=== PATIENT | male | born 1955 | race Caucasian/White ===

== ENCOUNTER → 2017-10-06 | Day surgery (SDC) | payer BC ==
[~2017-10-06] MED LIST: ALLOPURINOL300 MG PO; CRESTOR10 MG PO; FENTANYL CITRATE/PF 100MCG/2 ML INJ ONE; FISH OIL 1,2001 EACH PO; FISH OIL PO; LIDOCAINE HCL 2% LOCAL INJ 5 ML SDV VIAL INJ ONE; LISINOPRIL10 MG PO; METOPROLOL TART50 MG PO; MIDAZOLAM HCL 2 MG/2 ML VIAL ONE; OMEPRAZOLE40 MG PO; PANTOPRAZOLE SO40 MG PO; PROPOFOL IV EMULSION 10 MG/ML 50 ML VIAL ONE
--- NOTE | 2017-10-06 09:08 | Operative Report ---
DATE OF PROCEDURE: October 06, 2017 REFERRING PHYSICIAN: Dr. Edwin Santiago PROCEDURE PERFORMED: Esophagogastroduodenoscopy with biopsies and esophageal dilatation. INDICATIONS FOR EGD: Dysphagia. MEDICATION: Patient was done under MAC. Please see anesthesiologist's note. PROCEDURE: With the patient in the left lateral decubitus position, the flexible fiberoptic Olympus gastroscope was introduced into the esophagus under direct visualization without any difficulty. There was some patchy erythema noted in the distal esophagus. There was a mild stricture noted at the GE junction that was dilated to size 52-Kosovan Spears. The scope was then advanced with ease into the stomach. Mucosa overlying the antrum and the body revealed some patchy erythema and mild to moderate edema, and biopsies were obtained and sent to stain for H. pylori. Hyperplastic appearing polyps were noted in the body of the stomach and some were partially excised with the cold biopsy forceps. A minute peripyloric ulcer was noted that was not bleeding, and there was no stigmata of recent hemorrhage. Pylorus appeared to be of normal contour and shape. It was intubated with ease. The scope was advanced all the way to the 2nd portion of the duodenum. The scope was then withdrawn slowly. Mucosa overlying the proximal 2nd portion appeared to be within normal limits. An approximately 1 cm sessile lesion was noted at the junction of the bulb and 2nd portion, and that was biopsied. The scope was then withdrawn back into the stomach and retroflexed. The mucosa overlying the fundus and the cardia appeared to be within normal limits. The scope was then straightened out. It was subsequently withdrawn. Patient tolerated the procedure well. IMPRESSION 1. Distal esophagitis, mild. 2. Esophageal stricture at the gastroesophageal junction dilated to a size 52-Kosovan Spears. 3. Gastritis, biopsied. Biopsy sent to stain for Helicobacter pylori. 4. Gastric polyps, body of stomach, some partially excised with the cold biopsy forceps. 5. Peripyloric channel ulcer, minute without active bleeding or stigmata of recent hemorrhage. 6. An approximately 1 cm sessile lesion at junction of bulb and 2nd portion, biopsied. PLAN: Follow up histology. Increase Protonix to 40 mg 1 p.o. a.c. b.i.d. Job#: [id number] RI cc:EDWIN SANTIAGO MD
== END | disposition home or self-care (01) ==
LOC: OR 06:12
PROVIDERS: ATTEND Internal Medicine Gastroenterology
DX: K22.2 Esophageal obstruction (principal); K31.7 Polyp of stomach and duodenum; K31.9 Disease of stomach and duodenum, unspecified; K29.70 Gastritis, unspecified, without bleeding; K25.9 Gastric ulcer, unspecified as acute or chronic, without hemorrhage or perforation; K20.9 Esophagitis, unspecified; I10 Essential (primary) hypertension; G47.33 Obstructive sleep apnea (adult) (pediatric); E78.00 Pure hypercholesterolemia, unspecified; M10.9 Gout, unspecified; Z01.810 Encounter for preprocedural cardiovascular examination; Z79.84 Long term (current) use of oral hypoglycemic drugs
CPT/HCPCS: 43239; 43450; 93005; J2001; J2250

== ENCOUNTER → 2021-11-19 | Day surgery (SDC) | payer BC ==
[2021-11-15 11:49] LABS: BASOPHILS % 0.4 % (0.0-1.0); EOSINOPHILS # (AUTO) 0.2 (0.0-0.4); EOSINOPHILS % 2.4 % (0.0-6.0); HEMATOCRIT 40.5 % (38.2-49.6); HEMOGLOBIN 13.1 g/dL (14.0-18.0); LYMPHOCYTES # (AUTO) 2.5 (1.0-3.2); LYMPHOCYTES % 32.7 % (18.0-39.1); MEAN CORPUSCULAR HEMOGLOBIN 32.1 pg (28-32); MEAN CORPUSCULAR HGB CONC 32.3 g/dL (31-35); MEAN CORPUSCULAR VOLUME 99.3 fL (81-99); MONOCYTES # (AUTO) 0.6 (0.2-0.8); MONOCYTES % 8.4 % (4.4-11.3); NEUTROPHILS # (AUTO) 4.3 (2.1-6.9); NEUTROPHILS % 55.6 % (38.7-80.0); PLATELET COUNT 196 x10e3/uL (140-360); RED BLOOD COUNT 4.08 x10e6/uL (4.3-5.7); RED CELL DISTRIBUTION WIDTH 14.1 % (11.7-14.4)
[~2021-11-19] MED LIST changes: +ASPIRIN81 MG PO; +GLUCAGON FOR INJ 1 MG VIAL ONE; +HYOSCYAMINE SULFATE 0.5 MG/ML INJ ONE; -MIDAZOLAM HCL 2 MG/2 ML VIAL ONE; +PLAVIX75 MG PO; +PROPOFOL IV EMULSION 10 MG/ML 20 ML VIAL ONE; -PROPOFOL IV EMULSION 10 MG/ML 50 ML VIAL ONE; +VITAMIN B-121000 MCG PO; +VITAMIN C1000 MG PO; +VITAMIN D3 COM1 EACH PO
[2021-11-19 15:15] VITALS: BP 127/84
== END | disposition home or self-care (01) ==
LOC: OR 10:09
PROVIDERS: ATTEND Internal Medicine Gastroenterology
DX: Z09 Encounter for follow-up examination after completed treatment for conditions other than malignant neoplasm (principal); Z86.010 Personal history of colon polyps; K57.30 Diverticulosis of large intestine without perforation or abscess without bleeding; K64.8 Other hemorrhoids; I25.10 Atherosclerotic heart disease of native coronary artery without angina pectoris; I10 Essential (primary) hypertension; E78.5 Hyperlipidemia, unspecified; M10.9 Gout, unspecified; M06.9 Rheumatoid arthritis, unspecified; M19.90 Unspecified osteoarthritis, unspecified site; Z01.810 Encounter for preprocedural cardiovascular examination; Z01.812 Encounter for preprocedural laboratory examination; Z20.822 Contact with and (suspected) exposure to COVID-19; Z98.61 Coronary angioplasty status; Z79.02 Long term (current) use of antithrombotics/antiplatelets; Z79.82 Long term (current) use of aspirin; Z79.899 Other long term (current) drug therapy
CPT/HCPCS: 0223U; 36415; 45378; 85025; 93005; J1610; J1980; J2001; J2704; J3010

== ENCOUNTER 2024-12-25 05:49 | Observation (INO) | payer MEDICARE, OTHER ==
[2024-12-23 10:11] LABS: BASOPHILS % 0.6 % (0.0-1.0); EOSINOPHILS % 4.7 % (0.0-6.0); LYMPHOCYTES % 27.2 % (18.0-39.1); MONOCYTES % 8.2 % (4.4-11.3); NEUTROPHILS % 58.5 % (38.7-80.0); RED CELL DISTRIBUTION WIDTH 13.2 % (11.7-14.4)
[2024-12-23 10:28] LABS: INR 0.88
[2024-12-23 10:30] LABS: EST GLOMERULAR FILTRATION RATE 96.0 ML/MIN (>=60)
[~2024-12-25] VITALS: Ht 180.3 cm; Wt 84.8 kg
[~2024-12-25 05:49] MED LIST changes: -FENTANYL CITRATE/PF 100MCG/2 ML INJ ONE; +GABAPENTIN ER600 MG PO; -GLUCAGON FOR INJ 1 MG VIAL ONE; -HYOSCYAMINE SULFATE 0.5 MG/ML INJ ONE; -LIDOCAINE HCL 2% LOCAL INJ 5 ML SDV VIAL INJ ONE; +PRAVASTATIN SOD10 MG PO; -PROPOFOL IV EMULSION 10 MG/ML 20 ML VIAL ONE; +VITAMIN D31250 MCG PO; +ZINC50 M2 PO
[2024-12-25] MEDS: LACTATED RINGER'S 1,000 ML ONE (07:25)
[2024-12-25] MEDS: CEFAZOLIN SODIUM 2 GM ONE (07:25)
[2024-12-25] MEDS ORDERED: FENTANYL CITRATE/PF 100MCG/2 ML INJ ONE (07:27)
[2024-12-25] MEDS ORDERED: SEVOFLURANE INHAL SOLN 250 ML PEN BTL ONE (07:27)
[2024-12-25] MEDS ORDERED: LIDOCAINE HCL 2% LOCAL INJ 5 ML SDV VIAL INJ ONE (07:27)
[2024-12-25] MEDS ORDERED: ROCURONIUM BROMIDE 1 ML IV ONE (07:27)
[2024-12-25] MEDS ORDERED: PROPOFOL IV EMULSION 10 MG/ML 20 ML VIAL ONE (07:27)
[2024-12-25] MEDS ORDERED: ACETAMINOPHEN 1000 MG/100 ML 100 ML IV ONE (07:27)
[2024-12-25] MEDS ORDERED: DEXAMETHASONE SOD PHOS INJ 4 MG/ML SDV ONE (08:28)
[2024-12-25] MEDS ORDERED: ONDANSETRON HCL INJ 2MG/ML 2ML 2 MG/ML VIAL ONE (08:28)
[2024-12-25] MEDS ORDERED: SUGAMMADEX SODIUM 200 MG/2 ML VIAL IV ONE (09:24)
[2024-12-25] MEDS ORDERED: HYDROCODON-ACE1 EA12 PO (09:59)
[2024-12-25] MEDS ORDERED: HYDROMORPHONE 2MG/ML IV PRN (10:00)
[2024-12-25] MEDS ORDERED: MAGNESIUM/ALUMINUM/SIMETHICONE 30 ML UDC PO PRN (10:00)
[2024-12-25] MEDS ORDERED: ONDANSETRON HCL INJ 2MG/ML 2ML 2 MG/ML VIAL IV PRN (10:00)
[2024-12-25] MEDS: LACTATED RINGER'S 1,000 ML IV SCH (10:00)
[2024-12-25] MEDS ORDERED: ACETAMINOPHEN 325 MG TAB PO PRN (10:00)
[2024-12-25] MEDS ORDERED: PROMETHAZINE HCL (IM) 25 MG/ML VIAL IM PRN (10:00)
[2024-12-25] MEDS: FENTANYL CITRATE/PF 100MCG/2 ML INJ ONE (10:12)
[2024-12-25] MEDS: CARISOPRODOL 350 MG TAB PO PRN (10:36)
[2024-12-25 12:37] VITALS: BP 123/78; PULSE 85; RESP 19; TEMP 97.7; O2SAT 95
[2024-12-25 13:26] VITALS: BP 123/78; PULSE 85; RESP 19; TEMP 97.7; O2SAT 95
[2024-12-25] MEDS: OXYCODONE/ACETAMINOPHEN 5-325 1 EACH TABLET PO PRN (15:07)
[2024-12-25] MEDS: GABAPENTIN 300 MG CAP PO SCH (15:08)
[2024-12-25] MEDS: CEPACOL SORE THROAT LOZENGES PO PRN (15:08)
[2024-12-25] MEDS ORDERED: OXYCODONE/ACETAMINOPHEN 5-325 1 EACH TABLET PO PRN (15:15)
[2024-12-25 16:21] VITALS: BP 107/74; PULSE 60; RESP 20; TEMP 97.7; O2SAT 100
[2024-12-25] MEDS: METOPROLOL TARTRATE 50 MG TAB PO SCH (16:59)
[2024-12-25 19:38] VITALS: BP 106/68; PULSE 52; RESP 18; TEMP 97.9; O2SAT 98
[2024-12-25 20:00] VITALS: BP 106/68; PULSE 52; RESP 18; TEMP 97.9; O2SAT 98
[2024-12-25] MEDS: ZOLPIDEM TARTRATE 5 MG TAB PO PRN (20:26)
[2024-12-25 23:01] VITALS: BP 109/66; PULSE 57; RESP 18; TEMP 97.5; O2SAT 96
[2024-12-26 03:07] VITALS: BP 121/76; PULSE 56; RESP 18; TEMP 97.5; O2SAT 99
[2024-12-26 08:00] VITALS: BP 121/76; PULSE 56; RESP 18; TEMP 97.5; O2SAT 99
[2024-12-26 08:04] VITALS: BP 117/72; PULSE 60; RESP 16; TEMP 97.7; O2SAT 99
[2024-12-26] MEDS: SIMVASTATIN 40 MG TAB PO SCH (08:42)
[2024-12-26] MEDS: Morphine 10mg syringe 10 MG/ML INJ IM PRN (08:42)
[2024-12-26] MEDS: ASCORBIC ACID 500 MG TAB PO SCH (08:42)
[2024-12-26] MEDS: ALLOPURINOL 300 MG TAB PO SCH (08:43)
[2024-12-26] MEDS: LISINOPRIL 10 MG TAB PO SCH (08:43)
[2024-12-26] MEDS: CYANOCOBALAMIN 1,000 MCG TAB PO SCH (08:44)
[2024-12-26] MEDS: ASPIRIN 81 MG CHEW TAB PO SCH (09:00)
[2024-12-26] MEDS: ZINC AMINO ACID CHELATE PO SCH (09:00)
[2024-12-26] MEDS ORDERED: NON-FORMULARY MEDICATION (Pravastatin Sodium 10 MG) PO SCH (09:00)
[2024-12-26] MEDS: NON-FORMULARY MEDICATION (Cholecalciferol (Vitamin D3) (Vitamin D3) 50 MCG) PO SCH (09:00)
[2024-12-26] MEDS: CLOPIDOGREL BISULFATE 75 MG TAB PO SCH (09:00)
[2024-12-26 11:18] VITALS: BP 117/75; PULSE 58; TEMP 98.1; O2SAT 98
== END 2024-12-26 14:40 | disposition home or self-care (01) ==
LOC: OR 05:49 → PACU V 10:20 → MED/SURG 11:38
PROVIDERS: ADMIT Neurological Surgery; ATTEND Neurological Surgery
DX: M48.062 Spinal stenosis, lumbar region with neurogenic claudication (principal); M51.16 Intervertebral disc disorders with radiculopathy, lumbar region; Z79.82 Long term (current) use of aspirin; I10 Essential (primary) hypertension; I25.10 Atherosclerotic heart disease of native coronary artery without angina pectoris; Z95.5 Presence of coronary angioplasty implant and graft; M10.9 Gout, unspecified; M19.90 Unspecified osteoarthritis, unspecified site; E78.5 Hyperlipidemia, unspecified; Z01.810 Encounter for preprocedural cardiovascular examination; Z01.812 Encounter for preprocedural laboratory examination; Z01.818 Encounter for other preprocedural examination
CPT/HCPCS: 36415; 63047; 63048; 71046; 72020; 80048; 85025; 85610; 85730; 86850; 86900; 88304; 88311; 93005; G0378 ×2; J0131; J0690 ×2; J1100; J2003; J2270 ×2; J2405; J2704; J3010; J7121